=== PATIENT | male | born 1935 | race Caucasian/White ===

== ENCOUNTER 2024-01-29 13:42 | Inpatient (IN) | payer OTHER, SELFPAY ==
[2024-01-29] VITALS (40 sets, daily range): BP systolic 108–169; BP diastolic 53–90; PULSE 38–71; RESP 13–25; TEMP 36.2–36.4; O2SAT 90–97
--- NOTE | 2024-01-29 13:43 | XRR_ITS ---
PROCEDURE INFORMATION: Exam: XR Chest Exam date and time: 01/29/2024 2:16 PM Age: 88 years old Clinical indication: Shortness of breath; Prior surgery; Surgery date: 6+ months; Surgery type: Stents; Additional info: Cp TECHNIQUE: Imaging protocol: Radiologic exam of the chest. Views: 1 view. COMPARISON: No relevant prior studies available. FINDINGS: Lungs: Primarily right-sided pulmonary vascular congestion. No focal consolidation. Pleural spaces: No pleural effusion. No pneumothorax. Heart/Mediastinum: Cardiomegaly. Bones/joints: No acute findings. XR/XR chest 1V portable [id number] IMPRESSION: Cardiomegaly and mild pulmonary vascular congestion. No focal lung consolidation.
--- NOTE | 2024-01-29 13:43 | ECG_ITS ---
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 Measurements Intervals [place] Rate: 44 P: 48 [place]: 251 QRS: 20 QRSD: 108 T: 121 QT: 508 QTc: 439 Interpretive Statements SINUS BRADYCARDIA WITH FIRST DEGREE AV BLOCK POSSIBLE ANTERIOR MYOCARDIAL INFARCTION , OF INDETERMINATE AGE [30 ms Q WAVE IN V3/V4, OR R < 0.2 mV IN V4] POSSIBLE INFERIOR MYOCARDIAL INFARCTION , PROBABLY OLD [30 ms Q WAVE IN II/aVF] MODERATE T-WAVE ABNORMALITY, CONSIDER LATERAL ISCHEMIA [-0.1+ mV T-WAVE IN I/aVL/V5/V6] No previous ECG available for comparison Electronically Signed On 01-29-2024 18:55:02 CDT by Alex Herrera M.D. [email or web address] adult care [email or web address] [email or web address].K[employer]za/store/[id number]
--- NOTE | 2024-01-29 13:50 | ED_ITS ---
HPI - SOB/Dyspnea 2 General: Chief Complaint: Chest Pain Stated Complaint: left side chest pain Time Seen by Provider: 01/29/24 13:43 Source: patient and EMS Mode of arrival: EMS Limitations: no limitations History of Present Illness: HPI Narrative: 88-year-old male states that he has been having some shortness of breath and cough for the last 2 weeks. Patient states that he had had a heart attack last week and received stents he denies any chest pain at this time he denies any fever he has had the cough and dyspnea his pulse ox here is 96% on room air. Associated symptoms: Deny abdominal pain, chest pain, fever(s), nausea or vomiting Review of Systems 2 Const: Denies: fever(s), chills, body aches or change in appetite ENMT: Denies: throat pain or dental pain Card: Denies: chest pain Resp: Reports: dyspnea and non-productive cough GI: Denies: abdominal pain, nausea, vomiting or diarrhea Musc: Denies: neck pain or back pain Skin/Breast: Denies: rash Neuro: Denies: headache(s) Physical Exam 2 Const: COMMON NORMALS: patient oriented x3 HENMT: COMMON NORMALS: normocephalic and atraumatic HEAD & SCALP: n ormocephalic and atraumatic Eye: COMMON NORMALS: Equal, round and reactive pupils present and EOMs intact bilaterally PUPIL: Yes Equal, round and reactive pupils present Neck/C-Spine: COMMON NORMALS: full ROM and supple Chest: COMMONS NORMALS: normal inspection of the chest Resp: COMMON NORMALS: No retractions OTHER: rales rlll Cardio: COMMON NORMALS: regular rhythm and No murmurs present (Cardio) R ATE: bradycardic RHYTHM: regular rhythm GI: COMMON NORMALS: Normal to inspection, nondistended, normoactive bowel sounds present, Soft to palpation, non-tender and no masses PALPATION: Yes Soft to palpation Extremity: COMMON NORMALS: normal to inspection and full ROM Neuro: COMMON NORMALS: patient oriented x3, moves all extremities and no focal motor deficits Psych: COMMON NORMALS: mental status grossly normal, Normal thought process present and cooperative THOUGHT PROCESS: Normal thought process present Skin: COMMON NORMALS: no rashes or lesions noted and no wounds GENERAL SKIN EXAM: no rashes or lesions noted Course 2 Vital Signs: Vital signs: Vital Signs Temperature 97.5 F L 03/18/24 13:48 Pulse Rate 45 L 01/29/24 13:48 Respiratory Rate 18 01/29/24 13:48 Blood Pressure 158/89 01/29/24 13:48 Pulse Oximetry 95 01/29/24 13:48 Oxygen Delivery Me thod Room Air 01/29/24 13:48 MDM - SOB/Dyspnea Medical Decision Making Patient presents here with shortness of breath likely from CHF x-ray does show some pulmonary edema and his BNP is quite elevated. He had no chest pain EKG shows no ST elevation he does have an elevated troponin here he did have a recent cath with stent placement I did speak to the container finishing inspector Dr. Block who is consulted will trend troponins I spoke to hospitalist and will admit to cardiac stepdown Medical Records I reviewed the patient's medical records. Lab Data I reviewed the patient's lab results. 01/29/24 14:06 01/29/24 14:06 Labs/Radiology: Radiology Impressions Chest X-Ray 01/29/24 13:43 IMPRESSION: Cardiomegaly and mild pulmonary vascular congestion. No focal lung consolidation. Laboratory Results WBC 12.42 10^3/uL (3.29-11.43) H 01/29/24 14:06 RBC 3.41 10^6/uL (3.85-5.65) L 01/29/24 14:06 Hgb 11.50 g/dL (11.27-16.99) 01/29/24 14:06 Hct 36.2 % (37-53) L 01/29/24 14:06 MCV 106.2 fl (82-101) H 01/29/24 14:06 MCH 33.7 pg (27-33) H 01/29/24 14:06 MCHC 31.8 g/dL (30-55) 01/29/24 14:06 RDW 14.5 % (12.1-15.1) 01/29/24 14:06 Plt Count 378 10^3/cmm (157-399) 01/29/24 14:06 MPV 11.8 fL (7.4-10.4) H 01/29/24 14:06 Neut % (Auto) 82.1 % 01/29/24 14:06 Lymph % (Auto) 7.8 % 01/29/24 14:06 [place] % (Auto) 8.0 % 01/29/24 14:06 Eos % (Auto) 1.0 % 01/29/24 14:06 Baso % (Auto) 0.5 % 01/29/24 14:06 Neut # (Auto) 10.21 10^3/uL (1.8-7.7) H 01/29/24 14:06 Lymph # (Auto) 1.0 10^3/uL (0.8-4.8) 01/29/24 14:06 [place] # (Auto) 1.0 10^3/uL (0.2-0.9) H 01/29/24 14:06 Eos # (Auto) 0.1 10^3/uL (0.0-0.8) 01/29/24 14:06 Baso # (Auto) 0.1 10^3/uL (0.0-0.1) 01/29/24 14:06 Nucleated RBC % (auto) 0 % 01/29/24 14:06 Nucleated RBCs # 0.0 /100WBC 01/29/24 14:06 PT 15.20 SECONDS (12.1-14.9) H 01/29/24 14:06 INR 1.16 (0.8-1.2) 01/29/24 14:06 Sodium 137 mmol/L (136-145) 01/29/24 14:06 Potassium 4.4 mmol/L (3.5-5.1) 01/29/24 14:06 Chloride 104 mmol/L (98-107) 01/29/24 14:06 Carbon Dioxide 20 mmol/L (22-29) L 01/29/24 14:06 Anion Gap 17.4 (5-19) 01/29/24 14:06 BUN 63 mg/dL (8-23) H 01/29/24 14:06 Creatinine 2.8 mg/dL (0.7-1.2) H 01/29/24 14:06 GFR Calculation Not Reportable 01/29/24 14:06 Glucose 94 mg/dL (65-115) 01/29/24 14:06 Calculated Osmolality 302 mOsm/kg (285-295) H 01/29/24 14:06 Calcium 9.2 mg/dL (8.5-10.5) 01/29/24 14:06 Total Bilirubin 0.3 mg/dL (0.15-1.2) 01/29/24 14:06 AST 23 U/L (0-40) 01/29/24 14:06 ALT 27 U/L (0-41) 01/29/24 14:06 Alkaline Phosphatase 81 U/L (40-130) 01/29/24 14:06 Troponin T Baseline 453 ng/L (0-15) H* 01/29/24 14:06 NT-Pro-B Natriuret Pep 48324 pg/mL (0-450) H 01/29/24 14:06 Total Protein 6.4 g/dL (6.6-8.7) L 01/29/24 14:06 Albumin 3.9 g/dL (3.5-5.2) 01/29/24 14:06 Globulin 2.5 g/dL (1.3-4.6) 01/29/24 14:06 Lipase 59 U/L (13-60) 01/29/24 14:06 All radiology interpretation(s) finalized by discharge EKG Data EKG 1: I personally reviewed and interpreted this EKG as follows: EKG Interpretation Date: 01/29/24 EKG interpretation time: 13:46 Interpretation: sinus baylee hr [address] elevation qrs 108 qtc 461 Discharge Plan Discharge Patient Disposition: Admitted As Inpatient Clinical Impression: CHF (congestive heart failure) Condition: Stable Prescriptions: No Action Aspir-81 81 mg Tablet,Delayed Release (Dr/Ec) 81 mg PO DAILY amiodarone 200 mg Tablet 200 mg PO BID metoprolol succinate 200 mg Tablet Extended Release 24 Hr 200 mg PO DAILY hydralazine 25 mg Tablet 25 mg PO TID Plavix 75 mg Tablet 75 mg PO DAILY isosorbide dinitrate 20 mg Tablet 20 mg PO TID Rx Instructions: allow nitrate-free interval of 12-14 hrs per 24-hr period (RX NO PICKED UP OF 01/29/24) Crestor 10 mg Tablet 10 mg PO DAILY Eliquis 2.5 mg Tablet 2.5 mg PO BID Rx Instructions: (RX NOT PICKED UP OF 01/29/24) Coding Level of Care Code ED [place] Guide for Nathaniel Juárez
[2024-01-29 14:28] LABS: Basophils # 0.1 10^3/uL (0.0-0.1); Basophils % 0.5 %; Eosinophils # 0.1 10^3/uL (0.0-0.8); Hematocrit 36.2 % (37-53); Lymphocytes % 7.8 %; Mean Corpuscular HGB Conc 31.8 g/dL (30-55); Mean Corpuscular Hemoglobin 33.7 pg (27-33); Mean Corpuscular Volume 106.2 fl (82-101); Mean Platelet Volume 11.8 fL (7.4-10.4); Neutrophils # 10.21 10^3/uL (1.8-7.7); Neutrophils % 82.1 %; Nucleated Red Blood Cells % 0 %; Platelet Count 378 10^3/cmm (157-399); Red Blood Count 3.41 10^6/uL (3.85-5.65); Red Cell Distribution Width 14.5 % (12.1-15.1); White Blood Count 12.42 10^3/uL (3.29-11.43)
--- NOTE | 2024-01-29 14:38 | PC.PHAR ---
Addendum entered by Kylee Benoit 01/29/24 15:49: [facility] MED L[facility] THAT [facility] HAS ALFUZOSIN 10MG ONE TAB QPM-FINASTERIDE 5MG ONE TAB DAILY-AMLODIPINE 10MG ONE TAB PO DAILY-CHLORTHALIDONE 25MG ONE TAB DAILY-CLONIDINE 0.2MG ONE TAB PO DAILY-LEVOTHYROXINE 25MCG ONE TAB PO QAM-KCL 20MEQ TAKE ONE-HALF TAB 10MEQ PO DAILY-LOSARTAN 100MG ONE TAB PO DAILY-ASPIRIN 325MG ONE TAB ONCE A DAY Original Note: PT STATES HIS TAKES CARE OF HIS MEDICATIONS-PT STATES HE WAS ON MEDICATIONS FROM THE [place] BEFORE HE WAS AT THE HOSPITAL [facility] -STATES NOT TAKEN VA MEDS FOR ALMOST 2 WEEKS-PT AND PTS UNSURE OF NAMES OF MEDICATIONS FAXED [place] FOR MED LIST-PTS STATES PT WAS DISCHARGED ON 01/20/24 FROM THE [facility]- STATES FILLED MEDICATIONS FROM DISCHARGE MEDS AT [facility]-CALLED [facility] STATES THE PT DID NOT RADIO/TV TECHNICIAN ISOSORBIDE DINITRATE 20MG TID OR ELIQUIS 2.5MG BID PTS STATES SHE DIDNT RADIO/TV TECHNICIAN ELIQUIS 2.5MG BID BECAUSE IT WAS TOO EXPENSIVE BUT STATES SHE WASNT AWARE OF THE ISOSORBIDE DINITRATE 20MG TID -STATES THE PT IS ONLY TAKING 5 DIFFERENT MEDICATIONS PLUS THE 81MG ASPIRIN SINCE BEING DISCHARGED FROM [facility]-STILL WAITING FOR VA LIST
[2024-01-29 14:48] LABS: INR 1.16 (0.8-1.2)
[2024-01-29 14:53] LABS: Troponin(5th) Baseline 453 ng/L (0-15)
[2024-01-29 14:59] LABS: Alanine Aminotransferase 27 U/L (0-41); Albumin Level 3.9 g/dL (3.5-5.2); Alkaline Phosphatase 81 U/L (40-130); Anion Gap 17.4 (5-19); Aspartate Amino Transferase 23 U/L (0-40); Blood Urea Nitrogen 63 mg/dL (8-23); Calcium 9.2 mg/dL (8.5-10.5); Carbon Dioxide 20 mmol/L (22-29); Chloride 104 mmol/L (98-107); Globulin 2.5 g/dL (1.3-4.6); Glucose 94 mg/dL (65-115); Lipase 59 U/L (13-60); NT Pro B Type Natriuretic Pept 33591 pg/mL (0-450); Osmolality Calculated 302 mOsm/kg (285-295); Potassium 4.4 mmol/L (3.5-5.1); Sodium 137 mmol/L (136-145); Total Bilirubin 0.3 mg/dL (0.15-1.2); Total Protein 6.4 g/dL (6.6-8.7)
[2024-01-29] MEDS: FUROsemide 10 mg/mL SDV 10mL 60 MG IVP (15:16)
[2024-01-29] MEDS: aspirin 81 mg Chew Tablet 324 MG PO (15:16)
--- NOTE | 2024-01-29 15:43 | ECG_ITS ---
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 Measurements Intervals [place] Rate: 39 P: 20 [place]: 238 QRS: 13 QRSD: 104 T: 111 QT: 527 QTc: 427 Interpretive Statements SINUS BRADYCARDIA WITH FIRST DEGREE AV BLOCK ANTEROSEPTAL MYOCARDIAL INFARCTION , PROBABLY RECENT [40+ ms Q WAVE IN V1-V4] ACUTE SD Compared to ECG 01/29/2024 13:46:33 T-wave abnormality no longer present Possible ischemia no longer present Myocardial infarct finding still present Electronically Signed On 01-29-2024 18:58:29 CDT by Alex Herrera M.D. [email or web address]/[id number]
--- NOTE | 2024-01-29 15:45 | CTR_ITS ---
PROCEDURE INFORMATION: Exam: CT Chest Without Contrast; Diagnostic Exam date and time: 01/29/2024 4:31 PM Age: 88 years old Clinical indication: Shortness of breath; Additional info: Ahrotness of breath chf vs pna TECHNIQUE: Imaging protocol: Diagnostic computed tomography of the chest without contrast. Radiation optimization: All CT scans at this facility use at least one of these dose optimization techniques: automated exposure control; mA and/or kV adjustment per patient size (includes targeted exams where dose is matched to clinical indication); or iterative reconstruction. COMPARISON: CR XR chest 1V portable [id number] 01/29/2024 2:16 PM RADIATION DOSE METRICS: Total DLP (mGy-cm): 495.12 FINDINGS: Lungs: Primarily right-sided multifocal patchy airspace opacities. Pleural spaces: Small dvzkg-sowzycv-hldv-left pleural effusions. Heart: Extensive coronary calcifications. No pericardial effusion. Lymph nodes: Reactive appearing mediastinal/hilar lymph nodes. Vasculature: No aortic aneurysm. Bones/joints: No acute findings Soft tissues: Cholelithiasis. 3.5 cm pancreatic head cystic lesion. Tiny hepatic cyst or hemangioma. CT/CT chest wo con [id number] IMPRESSION: Primarily right-sided patchy airspace opacities likely infectious/inflammatory. Small bilateral pleural effusions. 3.5 cm pancreatic head cystic lesion. Nonemergent pancreatic MRI recommended for further characterization. Cholelithiasis.
--- NOTE | 2024-01-29 15:45 | USCV_ITS ---
Aneesh Raman Age: 88 Gender: M : 1935 Exam Date: 01/29/2024 23:15 Ordering Phys: Antione Aguila MD Technologist: ALFRED [place] [facility]ication: NSTEMI sob cough x 2 weeks. MA last week s/p stents. BP: 141 / 79 HR: 39 Rhythm: Sinus bradycardia Technical Quality: Adequate MEASUREMENTS (Male / Female) Normal Values 2D ECHO LV Diastolic Diameter PLAX 4.1 cm 4.2 - 5.9 / 3.9 - 5.3 cm IVS Diastolic Thickness 2.1 cm 0.6 - 1.0 / 0.6 - 0.9 cm IVS Systolic Thickness 2.2 cm LVPW Diastolic Thickness 1.5 cm 0.6 - 1.0 / 0.6 - 0.9 cm LVPW Systolic Thickness 2.5 cm LVOT Diameter 2.1 cm LV Ejection Fraction 2D Teich 59.0 % LV Ejection Fraction MOD 2C 23.7 % LV Ejection Fraction 2C AL 24.8 % LA Diameter 4.6 cm Aorta at Sinotubular Diameter 3.5 cm IVC Diameter 2.0 cm DOPPLER AV Peak Velocity 145.0 cm/s LVOT Peak Velocity 76.0 cm/s AV Area Cont Eq vti 1.9 cm squared AV Area Cont Eq pk 1.8 cm squared MV Peak Velocity 101.0 cm/s MV Area PHT 2.9 cm squared Mitral E to A Ratio 3.4 TV Peak Velocity 320.3 cm/s TR Peak Velocity 332.0 cm/s TR Peak Gradient 44.1 mmHg TV Peak E Velocity 38.0 cm/s Right Atrial Pressure 10.0 mmHg Pulmonary Artery Systolic Pressu 54.1 mmHg PV Peak Velocity 80.0 cm/s FINDINGS Left Ventricle Left ventricle is normal in size. LV Systolic function is severely reduced with EF of 25-30%. Severe hypokinesis of anterior and anteroseptal ojhn. Right Ventricle Normal in size and function Right Atrium Normal in size Left Atrium Normal in size Mitral Valve Mild to moderate mitral annular calcification. Trace mitral regurgitation. Aortic Valve Aortic valve is thickened. Mild aortic regurgitation. No significant stenosis. Tricuspid Valve Moderate tricuspid regurgitation. RVSP is 50-55mmHg. This is consistent with moderate pulmonary hypertension. 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 Above-mentioned regional wall motion abnormalities are seen. Trace mitral regurgitation Mild aortic regurgitation Moderate tricuspid regurgitation. 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 No comparison studies are available Vic Villa MD (Electronically Signed) Final Date: 30 January 2024 12:28 S
--- NOTE | 2024-01-29 15:46 | P.HP_ITS ---
Providers/Chief Complaint 2 Chief Complaint: left side chest pain History of Present Illness Aneesh Raman is a 88 year old male with a past medical history of CAD recently had a stent placed in [facility] about a week ago, history of atrial fibrillation on Eliquis, hypertension hyperlipidemia who presents to [facility] due to increased shortness of breath, fatigue, malaise. Currently patient is normotensive, telemetry shows sinus bradycardia heart rates in the 40s, he is alert awake, following all commands, currently on 2 L, does not use oxygen at home. Patient tells me that he was admitted at [facility] for roughly a week he does not know why it was for so long, but that he had 1 stent placed in his heart, denies any infections during that hospitalization no history of heart failure or history of kidney failure at that position, still waiting on records. He eventually got discharged home he lives with his , he tells me that recently has been more short of breath with exertion, feeling tired and fatigued, feeling lightheaded, does report anterior chest discomfort nonradiating, not associate with shortness of breath, denies any fevers, no chills, does have a cough, denies smoking no history of lung disease he has never been told that he has heart failure he tells me, but he does tell me that when he was at [facility] they told him that his pump was not working well, denies lower extremity edema, denies any falls. In the emergency room patient was given 60 mg IV push Lasix 324 mg of aspirin. First troponin is 453, EKG had no acute ST-T wave changes, BNP over 30,000, chest x- ray showing pulm vascular congestion. Dr. Anderson from the emergency room has informed me that he has spoken to Dr. Villa, will consult Review of Systems 2 Const: Reports: fatigue and malaise; Denies: fever(s) Eyes: Denies: change in vision Card: Reports: chest pain, lightheadedness and dyspnea on exertion; Denies: palpitations Resp: Reports: dyspnea and non-productive cough GI: Denies: abdominal pain : Denies: flank pain Musc: Denies: neck pain or back pain Skin/Breast: Denies: rash Neuro: Reports: weakness in extremities and dizziness; Denies: headache(s), numbness in extremities, vertigo or Slurred speech present Endo: Denies: polyuria Medications/Allergies Home Medications Medication Instructions Recorded Confirmed Last Taken Type amiodarone 200 mg tablet 200 mg PO BID 01/29/24 01/29/24 Unknown History apixaban 2.5 mg tablet (Eliquis) 2.5 mg PO BID 01/29/24 01/29/24 Unknown History aspirin 81 mg tablet,delayed 81 mg PO DAILY 01/29/24 01/29/24 Unknown History release clopidogrel 75 mg tablet (Plavix) 75 mg PO DAILY 01/29/24 01/29/24 Unknown History hydralazine 25 mg tablet 25 mg PO TID 01/29/24 01/29/24 Unknown History isosorbide dinitrate 20 mg tablet 20 mg PO TID 01/29/24 01/29/24 Unknown History metoprolol succinate 200 mg 200 mg PO DAILY 01/29/24 01/29/24 Unknown History tablet,extended release 24 hr rosuvastatin 10 mg tablet (Crestor) 10 mg PO DAILY 01/29/24 01/29/24 Unknown History Allergies Allergy/AdvReac Type Severity Reaction Status Date / Time No Known Allergies Allergy Verified 01/29/24 13:49 PFSH Acute 2 PFSH: Medical History (Updated 01/29/24 @ 15:53 by Antione Aguila MD) History of hypertension History of hyperlipidemia History of CAD (coronary artery disease) Surgical History (Updated 01/29/24 @ 15:50 by Antione Aguila MD) History of heart artery stent Family History (Updated 01/29/24 @ 15:50 by Antione Aguila MD) Mother CAD (coronary artery disease) Father Perforated appendicitis Social History (Updated 01/29/24 @ 15:51 by Antione Aguila MD) Smoking and tobacco/nicotine status: never used tobacco/nicotine Alcohol intake: never Substance/Drug Use: never Vitals/I&O/Wt Last Vital Signs Temp 97.5 F L 01/29/24 13:48 Pulse 45 L 01/29/24 13:48 Resp 18 01/29/24 13:48 BP 158/89 01/29/24 13:48 Pulse Ox 95 01/29/24 13:48 O2 Del Method Room Air 01/29/24 13:48 Weight last 48 hrs Weight 88.451 kg Physical Exam 2 Const: COMMON NORMALS: no acute distress and patient oriented x3 HENMT: COMMON NORMALS: normocephalic HEAD & SCALP: normocephalic Eye: COMMON NORMALS: Equal, round and reactive pupils present and EOMs intact bilaterally Neck/C-Spine: COMMON NORMALS: no JVD Lymph: LYMPHATIC: no lymphadenopathy noted Resp: COMMON NORMALS: normal respiratory effort, No retractions, No use of accessory muscles and clear to auscultation bilaterally AUSCULTATION: c rackles and wheezes Cardio: COMMON NORMALS: no JVD, regular rate, regular rhythm, S1 normal heart sound present and S2 normal heart sound present RATE: regular rate RHYTHM: regular rhythm HEART SOUNDS: S1 normal heart sound present and S2 normal heart sound present GI: COMMON NORMALS: Normal to inspection, nondistended, normoactive bowel sounds present, Soft to palpation and non-tender PALPATION: Yes Soft to palpation Extremity: COMMON NORMALS: no calf tenderness and no pedal edema Neuro: COMMON NORMALS: patient oriented x3, CN's II-XII intact bilaterally and moves all extremities Psych: COMMON NORMALS: mental status grossly normal Data 01/29/24 14:06 01/29/24 14:06 A&P Assessment and plan (1) NSTEMI (non-ST elevated myocardial infarction): (2) Systolic CHF, acute: (3) Leukocytosis: (4) Acute kidney injury: (5) Bradycardia: Plan Acute systolic CHF exacerbation -BNP over 30,000, chest x-ray showing pulmonary vascular congestion Plan -Place Larson catheter -Has received 60 mg IV Lasix in the ER -Monitor urine output monitor creatinine -Start Lasix 40 mg IV twice daily NSTEMI -With recent history of CAD -Will await records -Currently chest pain-free Plan -Serial EKGs, serial troponins, telemetry monitoring -Heparin drip -Aspirin, statin, Plavix -Cardiology consulted Acute kidney injury -Baseline creatinine unknown -Will await labs from [facility] -Monitor urine output, monitor creatinine Leukocytosis -Complains of productive cough, complains of recent UTI -Etiology unclear -Recently hospitalized at [facility] -UA pending -Chest x-ray is difficult to see the left lung base, -Will order CRP, Pro-Gerald, CT chest Bradycardia -Possibly polypharmacy, from amiodarone, metoprolol, will hold both Full code Heparin for DVT prophylaxis Attestations 2 Medical Necessity Statement*: Patient requires hospitalization, inpatient, greater than 2 midnights for acute systolic CHF, NSTEMI, bradycardia, leukocytosis, DRAKE Diagnoses NSTEMI (non-ST elevated myocardial infarction) I21.4 Systolic CHF, acute I50.21 Leukocytosis D72.829 Acute kidney injury N17.9 Bradycardia R00.1
--- NOTE | 2024-01-29 15:56 | P.CONIM_ITS ---
Providers/Reason For Consult 2 Consulting Physician/Specialty*: Vic Villa MD/ Cardiology Reason for Consult*: NSTEMI Requesting Physician: Dr Anderson Attending Physician: Dr Aguila History of Present Illness History of Present Illness Aneesh Raman is a 88 year old male with past medical history of atrial fibrillation on Eliquis, recent CA 1 to 2 weeks back when he was seen at [facility] and underwent PCI of LAD, was also found to have congestive heart failure at that time. He was sent from PCP office secondary to complaints of shortness of breath and EKG changes. On review of EKG, no ST elevation CA noted however he does have ST-T wave changes in anterior and anterolateral leads likely evolving from old CA. He is significantly bradycardic with heart rates aroung 40bpm. His initial troponin is 453 with a downtrend afterwards. BNP is over 30,000. Creatinine is elevated as well. He denies chest pain. Review of Systems 2 Const: Denies: fever(s), chills, body aches or change in appetite ENMT: Denies: throat pain or dental pain Card: Denies: chest pain Resp: Reports: dyspnea and non-productive cough GI: Denies: abdominal pain, nausea, vomiting or diarrhea Musc: Denies: neck pain or back pain Skin/Breast: Denies: rash Neuro: Denies: headache(s) Medications/Allergies Home Medications Medication Instructions Recorded Confirmed Last Taken Type amiodarone 200 mg tablet 200 mg PO BID 01/29/24 01/29/24 Unknown History apixaban 2.5 mg tablet (Eliquis) 2.5 mg PO BID 01/29/24 01/29/24 Unknown History aspirin 81 mg tablet,delayed 81 mg PO DAILY 01/29/24 01/29/24 Unknown History release clopidogrel 75 mg tablet (Plavix) 75 mg PO DAILY 01/29/24 01/29/24 Unknown History hydralazine 25 mg tablet 25 mg PO TID 01/29/24 01/29/24 Unknown History isosorbide dinitrate 20 mg tablet 20 mg PO TID 01/29/24 01/29/24 Unknown History metoprolol succinate 200 mg 200 mg PO DAILY 01/29/24 01/29/24 Unknown History tablet,extended release 24 hr rosuvastatin 10 mg tablet (Crestor) 10 mg PO DAILY 01/29/24 01/29/24 Unknown History Allergies Allergy/AdvReac Type Severity Reaction Status Date / Time No Known Allergies Allergy Verified 01/29/24 13:49 PFSH Acute 2 PFSH: Medical History History of hypertension History of hyperlipidemia History of CAD (coronary artery disease) Surgical History History of heart artery stent Family History Mother CAD (coronary artery disease) Father Perforated appendicitis Social History Smoking and tobacco/nicotine status: never used tobacco/nicotine Alcohol intake: never Substance/Drug Use: never Vitals/I&O/Wt Last Vital Signs Temp 97.5 F L 01/29/24 13:48 Pulse 45 L 01/29/24 13:48 Resp 18 01/29/24 13:48 BP 158/89 01/29/24 13:48 Pulse Ox 95 01/29/24 13:48 O2 Del Method Room Air 01/29/24 13:48 Weight last 48 hrs Weight 195 lb Physical Exam 2 Narrative: GENERAL: Patient is alert, awake and oriented x3. [] NECK: No jugular vein distension. [] HEENT: No cyanosis. No icterus. No pallor. [] HEART: Regular S1 and S2. No murmur, rub or gallop. [] LUNGS: Mild crakcles bilaterally CENTRAL NERVOUS SYSTEM: Grossly nonfocal. [] EXTREMITIES: Lower extremities with 1+ edema bilaterally. Data 01/30/24 05:21 01/30/24 05:21 A&P Assessment and plan (1) NSTEMI (non-ST elevated myocardial infarction): (2) CHF (congestive heart failure): (3) Systolic CHF, acute: (4) Bradycardia: (5) Acute kidney injury: Plan Patient had recent LAD PCI in setting of acute CA. Was also found to have congestive heart failure at outside hospital. He is presenting with shortness of breath. Presentation is now consistent with CHF exacerbation. Troponins are trending down. Likely trending down from recent CA. Patient is chest pain- free. Continue monitoring. Administered Lasix cautiously. He has DRAKE. Will monitor renal function and I&O's. Continue aspirin and Plavix. He is significantly bradycardic. Will hold off on metoprolol and may restart at a lower dose later. Monitor blood pressure. Will obtain records from outside hospital where he had presented with recent CA and LAD PCI. Thank you for involving us with care of this patient. We will continue to follow. Please call with questions Consult Attestations 2 Medical Necessity Statement: Care expected to cross 2 midnights. Coding Level of Care Code Acute Code for [facility] Diagnoses NSTEMI (non-ST elevated myocardial infarction) I21.4 CHF (congestive heart failure) I50.9 Systolic CHF, acute I50.21 Bradycardia R00.1 Acute kidney injury N17.9
[2024-01-29 16:48] LABS: Troponin 5 2HR Delta -46.4 ABS# (0-10)
[2024-01-29 16:51] LABS: Troponin 5 2HR 406.6 ng/L (0-15)
[2024-01-29 17:17] LABS: C Reactive Protein 33.6 mg/L (0.0-4.9)
--- NOTE | 2024-01-29 17:24 | PC.NURSE ---
Patient's heart rate is staying steady at 38 or 39 but his blood pressure is 140's/80's and holding steady. I called Dr. Aguila to let him know about the patient's heart rate and he stated that as long as his blood pressure is holding steady he is fine with that heart rate.
[2024-01-29 18:30] LABS: Chol HDL Ratio 2.65 mg/dL (1.0-5.00); Cholesterol 114 mg/dL (0-200); HDL Cholesterol 43 mg/dL (60-100); LDL Cholesterol Calculated 52 mg/dL (50-129); LDL HDL Ratio 1.21 RATIO (0.00-3.22); Thyroid Stimulating Hormone 8.52 uIU/mL (0.27-4.20); Triglycerides 96 mg/dL (0-150)
[2024-01-29 18:32] LABS: Add Urine Culture? No; Add Urine Microscopic? YES; Amorphous Sediment Urine TRACE /hpf; Bilirubin Urine Neg (Negative); Blood Urine Neg (Negative); Glucose Urine UA Norm (Normal); Ketones Urine Negative (Negative); Leukocyte Esterase Urine Negative (Negative); Nitrate Urine Negative (Negative); Protein Urine Trace (Negative); Specific Gravity, Urine 1.015 (1.005-1.030); Urine Appearance Clear (CLEAR); Urine Color Yellow (Yellow); Urobilinogen Urine Neg (Negative); pH Urine 5 (5-7)
[2024-01-29] MEDS: pantoprazole 40 mg SDV IVP (19:12)
[2024-01-29] MEDS: cefTRIAXone 1,000 MG in sodium chloride 0.9% (plus) 50 ML 100 MG IV (19:13)
[2024-01-29] MEDS: azithromycin 500 MG in sodium chloride 0.9% 250 ML 250 MG IV (19:14)
--- NOTE | 2024-01-29 19:43 | ECG_ITS ---
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 Measurements Intervals [place] Rate: 39 P: 16 [place]: 242 QRS: -6 QRSD: 106 T: 194 QT: 635 QTc: 515 Interpretive Statements SINUS BRADYCARDIA WITH FIRST DEGREE AV BLOCK INFERIOR MYOCARDIAL INFARCTION , OF INDETERMINATE AGE [40+ ms Q WAVE AND/OR ST/T ABNORMALITY IN II/aVF] ANTEROSEPTAL MYOCARDIAL INFARCTION , AGE INDETERMINATE Compared to ECG 01/29/2024 16:21:47 Prolonged QT interval now present Myocardial infarct finding still present Electronically Signed On 01-30-2024 21:43:55 CDT by Vic Villa M.D. [id number]
[2024-01-29 19:59] LABS: Adenovirus Not Detected (NOT DETECT); Chlamydia Pneumoniae Not Detected (NOT DETECT); Coronavirus 229E,HKU1,NL63,OC4 Not Detected (NOT DETECT); Human Metapneumovirus Not Detected (NOT DETECT); Human Rhinovirus/Enterovirus Not Detected (NOT DETECT); Influenza A Not Detected (NOT DETECT); Influenza A H1 Not Detected (NOT DETECT); Influenza A H1-2009 Not Detected (NOT DETECT); Influenza A H3 Not Detected (NOT DETECT); Influenza B Not Detected (NOT DETECT); Mycoplasma Pneumoniae Not Detected (NOT DETECT); Parainfluenza Virus Type 1 Not Detected (NOT DETECT); Parainfluenza Virus Type 2 Not Detected (NOT DETECT); Parainfluenza Virus Type 3 Not Detected (NOT DETECT); Parainfluenza Virus Type 4 Not Detected (NOT DETECT); Respiratory Syncytial Virus A Not Detected (NOT DETECT); Respiratory Syncytial Virus B Not Detected (NOT DETECT); SARS-COV-2 Not Detected (NOT DETECT)
[2024-01-29 20:33] LABS: Troponin 5 6HR Delta -60.3 ng/L (0-12)
[2024-01-29 20:34] LABS: Troponin 5 6HR 392.7 ng/L (0-15)
[2024-01-29 21:11] LABS: Estmated Average Glucose 111; Hemoglobin A1C 5.5 % (4.0-6.0)
[2024-01-29] MEDS: heparin drip 25,000 UNIT/500 ML PREMIX 25 UNIT IV (21:52)
[2024-01-29] MEDS: FUROsemide 10 mg/mL SDV 4mL 40 MG IVP (21:56)
[2024-01-29] MEDS: hyDRALAzine 25 mg Tablet PO (21:56)
[2024-01-29] MEDS: isosorbide dinitrate 20 mg Tablet PO (21:59)
[2024-01-30] VITALS (94 sets, daily range): BP systolic 96–162; BP diastolic 49–97; PULSE 0–69; RESP 10–29; TEMP 36.4–36.6; O2SAT 87–98
[2024-01-30] MEDS: DOPamine drip 400 MG/250 ML PREMIX 16.3099999999999987 MG IV (01:18)
--- NOTE | 2024-01-30 01:30 | ECG_ITS ---
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 Measurements Intervals [place] Rate: 43 P: 45 [place]: 182 QRS: 7 QRSD: 102 T: 91 QT: 488 QTc: 414 Interpretive Statements SINUS BRADYCARDIA POSSIBLE INFERIOR MYOCARDIAL INFARCTION , OF INDETERMINATE AGE [30 ms Q WAVE IN II/aVF] MODERATE T-WAVE ABNORMALITY, CONSIDER ANTERIOR ISCHEMIA [-0.1+ mV T-WAVE IN V3/V4] Compared to ECG 01/30/2024 00:10:02 T-wave abnormality now present Possible ischemia now present First degree AV block no longer present Prolonged QT interval no longer present Myocardial infarct finding still present Electronically Signed On 01-30-2024 21:35:40 CDT by Vic Villa M.D. [id number] f
--- NOTE | 2024-01-30 01:37 | PC.NURSE ---
Patient had extended pause in heart rate, entered room, color dusky, respirations irregular and labored. Heart rate returned to 30's with tactile stimulation and patient was then responsive, answering questions as per his normal status, denied any chest pain or discomfort, stated my pecker hurts . Contacted physician, new order received for set dose of Dopamine. Medication started at set rate and heart rate currently in 50's.
[2024-01-30 05:46] LABS: Basophils # 0.1 10^3/uL (0.0-0.1); Basophils % 0.5 %; Eosinophils # 0.1 10^3/uL (0.0-0.8); Eosinophils % 0.9 %; Hematocrit 35.6 % (37-53); Lymphocytes % 6.6 %; Mean Corpuscular HGB Conc 32.6 g/dL (30-55); Mean Corpuscular Hemoglobin 33.2 pg (27-33); Mean Platelet Volume 11.9 fL (7.4-10.4); Monocytes # 1.2 10^3/uL (0.2-0.9); Monocytes % 7.9 %; Neutrophils # 12.72 10^3/uL (1.8-7.7); Neutrophils % 83.4 %; Nucleated Red Blood Cells % 0 %; Platelet Count 376 10^3/cmm (157-399); Red Blood Count 3.49 10^6/uL (3.85-5.65); Red Cell Distribution Width 14.4 % (12.1-15.1); White Blood Count 15.25 10^3/uL (3.29-11.43)
[2024-01-30 06:07] LABS: Partial Thromboplastin Time 103.6 SECONDS (23.9-36.7)
[2024-01-30 06:23] LABS: NT Pro B Type Natriuretic Pept 25831 pg/mL (0-450)
[2024-01-30 06:31] LABS: Alanine Aminotransferase 24 U/L (0-41); Albumin Level 3.6 g/dL (3.5-5.2); Alkaline Phosphatase 77 U/L (40-130); Anion Gap 17.5 (5-19); Aspartate Amino Transferase 18 U/L (0-40); Blood Urea Nitrogen 60 mg/dL (8-23); Calcium 8.8 mg/dL (8.5-10.5); Carbon Dioxide 21 mmol/L (22-29); Chloride 107 mmol/L (98-107); Globulin 3.1 g/dL (1.3-4.6); Glucose 105 mg/dL (65-115); Magnesium 2.6 mg/dL (1.7-2.3); Osmolality Calculated 311 mOsm/kg (285-295); Phosphorus 3.8 mg/dL (2.5-4.5); Potassium 3.5 mmol/L (3.5-5.1); Sodium 142 mmol/L (136-145); Total Bilirubin 0.4 mg/dL (0.15-1.2); Total Protein 6.7 g/dL (6.6-8.7)
[2024-01-30 06:34] LABS: Creatinine Clr Calc Pharmacy 18.8588
--- NOTE | 2024-01-30 07:50 | P.PN_ITS ---
Subjective 2 Subjective: Patient is doing well. No chest pain. Some shortness of breath. Vitals/I&O/Wt Last Vital Signs Temp 97.5 F L 01/30/24 01:35 Pulse 60 01/30/24 06:00 Resp 17 01/30/24 04:30 BP 162/83 01/30/24 04:30 Pulse Ox 95 01/30/24 04:30 O2 Del Method Nasal Cannula 01/30/24 00:17 O2 Flow Rate 1 01/30/24 00:17 01/29/24 01/30/24 01/30/24 22:59 06:59 14:59 Intake Total 509.583 / 509.583 Output Total 850 / 850 Balance -850 / -850 509.583 / -340.417 Weight last 48 hrs Weight 190 lb 14.4 oz Weight 191 lb 12.8 oz Weight 195 lb Physical Exam 2 Narrative: GENERAL: Patient is alert, awake and oriented x3. [] NECK: No jugular vein distension. [] HEENT: No cyanosis. No icterus. No pallor. [] HEART: Regular S1 and S2. No murmur, rub or gallop. [] LUNGS: Diminished air entry bilaterally. CENTRAL NERVOUS SYSTEM: Grossly nonfocal. [] EXTREMITIES: Lower extremities with 1+ edema bilaterally. Urinary Catheter Management: Larson Latex Free: Cath Placed During This Visit: yes Reason for Continuing Indwelling Catheter: Accurate Measurement of Urinary Output in Critically Ill Patients Urinary Catheter Date of Insertion: 01/29/24 Urinary Catheter Time of Insertion: 21:30 Data 01/30/24 05:21 01/30/24 05:21 Micro: Microbiology 01/29/24 17:39 Blood Culture - Preliminary Blood SPECIMEN COLLECTED 01/29/24 17:45 Blood Culture - Preliminary Blood SPECIMEN COLLECTED A&P Assessment and plan (1) NSTEMI (non-ST elevated myocardial infarction): (2) CHF (congestive heart failure): (3) Systolic CHF, acute: (4) Bradycardia: (5) Acute kidney injury: Plan Patient's presentation consistent with CHF exacerbation. He is improving. However patient's family want her to be transferred to the hospital where initial PCI was performed. Medically he is stable and does not need any invasive procedures. Medicine team will initiate transverse process. Thank you for involving us with care of this patient. Please call with questions Attestations 2 Medical Necessity Statement*: Care expected to cross 2 midnights. Coding Level of Care Code Acute Code for [facility] Diagnoses NSTEMI (non-ST elevated myocardial infarction) I21.4 CHF (congestive heart failure) I50.9 Systolic CHF, acute I50.21 Bradycardia R00.1 Acute kidney injury N17.9
[2024-01-30] MEDS: atorvastatin 40 mg Tablet PO (09:05)
[2024-01-30] MEDS: aspirin 81 mg EC Tablet PO (09:05)
[2024-01-30] MEDS: clopidogrel 75 mg Tablet PO (09:05)
[2024-01-30] MEDS: isosorbide dinitrate 20 mg Tablet PO ×2 (09:05→16:17)
[2024-01-30 09:15] LABS: Free T4 Free Thyroxine 1.33 ng/dL (0.82-1.77); T3 Free 1.8 PG/ML (2.0-4.4)
[2024-01-30 12:36] LABS: Partial Thromboplastin Time 108.2 SECONDS (23.9-36.7)
[2024-01-30] MEDS: acetaminophen 325 mg Tablet 650 MG PO (13:07)
[2024-01-30] MEDS: levothyroxine 25 mcg Tablet PO (13:07)
--- NOTE | 2024-01-30 14:26 | P.TS_ITS ---
Transfer Summary Providers Date of Admission: 01/29/24 15:05 Date of Discharge/Transfer: 01/30/24 Attending Provider at Admission: Antione Aguila MD Attending Provider at Transfer: Antione Aguila MD Transfer Plans: Anticipated date of transfer: 01/30/24 . Additional transfer facility information: Aneesh Raman is a 88 year old male with a past medical history of CAD recently had a stent placed in [facility] about a week ago, history of atrial fibrillation on Eliquis, hypertension hyperlipidemia who presents to [facility] due to increased shortness of breath, fatigue, malaise. Currently patient is normotensive, telemetry shows sinus bradycardia heart rates in the 40s, he is alert awake, following all commands, currently on 2 L, does not use oxygen at home. Patient tells me that he was admitted at [facility] for roughly a week he does not know why it was for so long, but that he had 1 stent placed in his heart, denies any infections during that hospitalization no history of heart failure or history of kidney failure at that position, still waiting on records. He eventually got discharged home he lives with his , he tells me that recently has been more short of breath with exertion, feeling tired and fatigued, feeling lightheaded, does report anterior chest discomfort nonradiating, not associate with shortness of breath, denies any fevers, no chills, does have a cough, denies smoking no history of lung disease he has never been told that he has heart failure he tells me, but he does tell me that when he was at [facility] they told him that his pump was not working well, denies lower extremity edema, denies any falls. In the emergency room patient was given 60 mg IV push Lasix 324 mg of aspirin. First troponin is 453, EKG had no acute ST-T wave changes, BNP over 30,000, chest x-r ay showing pulm vascular congestion. Dr. Anderson from the emergency room has informed me that he has spoken to Dr. Villa, will consult Patient was admitted to [facility] -Patient was found to have pneumonia on CT imaging, right-sided patchy opacities, with elevated leukocytosis, started on broad-spectrum antibiotic therapy, remains afebrile overall clinically improving, blood cultures pending, -Patient was admitted to [facility] for acute systolic CHF exacerbation, BNP over 30,000, Larson catheter placed received Lasix in the emergency room, has diuresed about a liter, resting comfortably, Lasix has been held as creatinine is up to 2.9 -For his NSTEMI, 6-hour troponin 392, de lta -60.3, managed on a heparin drip, no chest pain complaints no acute ST-T wave changes on EKG, cardiology was consulted, echocardiogram as below, cardiology recommended medical management. Patient recently had LAD stent placed at [facility] LV Systolic function is severely reduced with EF of 25-30%. Severe hypokinesis of anterior and anteroseptal john. -For patient's sinus bradycardia, likely polypharmacy, amiodarone, metoprolol, patient did require dopamine during the night, currently off dopamine, normotensive, heart rates in the 50s, he is alert oriented x 3, following all commands no lightheadedness, dizziness. Patient likely under the effect of metoprolol, and amiodarone continue to monitor, countinue to hold -atrial Fibrillation not in exacerbation , on heparin drip for anticoagulation -Acute kidney injury, baseline creatinin e 2.5-2.6, As per as per patient's request, patient wanted to be transferred to [facility], as all his physicians are at [facility],spoke to hospitalist, spoke to cardiology, have graciously accepted transfer . Diagnoses at Discharge Discharge Diagnosis (1) NSTEMI (non-ST elevated myocardial infarction): Status: Acute (2) CHF (congestive heart failure): Status: Acute (3) Systolic CHF, acute: Status: Acute (4) Bradycardia: Status: Acute (5) Acute kidney injury: Status: Acute Reason for Visit Reason for Visit left side chest pain Physical Exam Const: COMMON NORMALS: no acute distress and patient oriented x3 Resp: COMMON NORMALS: normal respiratory effort, No retractions, No use of accessory muscles and clear to auscultation bilaterally AUSCULTATION: clear to auscultation bilaterally Cardio: COMMON NORMALS: regular rhythm, S1 normal heart sound present and S2 normal heart sound present RATE: bradycardic RHYTHM: regular rhythm HEART SOUNDS: S1 normal heart sound present and S2 normal heart sound present GI: COMMON NORMALS: Normal to inspection, nondistended, normoactive bowel sounds present and non-tender Extremity: COMMON NORMALS: no pedal edema Neuro: COMMON NORMALS: patient oriented x3 Psych: COMMON NORMALS: mental status grossly normal Urinary Catheter Management: Larson Latex Free: Cath Placed During This Visit: yes Reason for Continuing Indwelling Catheter: Accurate Measurement of Urinary Output in Critically Ill Patients Urinary Catheter Date of Insertion: 01/29/24 Urinary Catheter Time of Insertion: 21:30 TS Data Studies Completed and Pending Pending at discharge Category Date Time Status Blood Culture Stat Lab 01/29/24 17:39 Results Complete Blood Count w/Auto AM LABS Lab 01/31/24 04:00 Ordered Complete Blood Count w/Auto AM LABS Lab 02/01/24 04:00 Ordered Comprehensive Metabolic Panel AM LABS Lab 01/31/24 04:00 Ordered Comprehensive Metabolic Panel AM LABS Lab 02/01/24 04:00 Ordered Magnesium AM LABS Lab 01/31/24 04:00 Ordered Magnesium AM LABS Lab 02/01/24 04:00 Ordered NT Pro B Type Natriuretic Pept AM LABS Lab 01/31/24 04:00 Ordered NT Pro B Type Natriuretic Pept AM LABS Lab 02/01/24 04:00 Ordered Phosphorus AM LABS Lab 01/31/24 04:00 Ordered Phosphorus AM LABS Lab 02/01/24 04:00 Ordered Platelet Count Q2D Lab 01/31/24 04:00 Ordered Platelet Count Q2D Lab 02/02/24 04:00 Ordered Completed Studies During Hospitalization Category Date Time Status CT chest wo con [id number] Stat Cat Scan 01/29/24 15:45 Completed XR chest 1V portable [id number] Stat Exams 01/29/24 13:43 Completed CV. echo complete* [id number] Stat Ultrasound 01/29/24 15:45 Completed Laboratory Last Values WBC 15.25 10^3/uL (3.29-11.43) H 01/30/24 05:21 RBC 3.49 10^6/uL (3.85-5.65) L 01/30/24 05:21 Hgb 11.60 g/dL (11.27-16.99) 01/30/24 05:21 Hct 35.6 % (37-53) L 01/30/24 05:21 MCV 102.0 fl (82-101) H 01/30/24 05:21 MCH 33.2 pg (27-33) H 01/30/24 05:21 MCHC 32.6 g/dL (30-55) 01/30/24 05:21 RDW 14.4 % (12.1-15.1) 01/30/24 05:21 Plt Count 376 10^3/cmm (157-399) 01/30/24 05:21 MPV 11.9 fL (7.4-10.4) H 01/30/24 05:21 Neut % (Auto) 83.4 % 01/30/24 05:21 Lymph % (Auto) 6.6 % 01/30/24 05:21 Aurora % (Auto) 7.9 % 01/30/24 05:21 Eos % (Auto) 0.9 % 01/30/24 05:21 Baso % (Auto) 0.5 % 01/30/24 05:21 Neut # (Auto) 12.72 10^3/uL (1.8-7.7) H 01/30/24 05:21 Lymph # (Auto) 1.0 10^3/uL (0.8-4.8) 01/30/24 05:21 Aurora # (Auto) 1.2 10^3/uL (0.2-0.9) H 01/30/24 05:21 Eos # (Auto) 0.1 10^3/uL (0.0-0.8) 01/30/24 05:21 Baso # (Auto) 0.1 10^3/uL (0.0-0.1) 01/30/24 05:21 Nucleated RBC % (auto) 0 % 01/30/24 05:21 Nucleated RBCs # 0.0 /100WBC 01/30/24 05:21 PT 15.20 SECONDS (12.1-14.9) H 01/29/24 14:06 INR 1.16 (0.8-1.2) 01/29/24 14:06 APTT 108.2 SECONDS (23.9-36.7) H 01/30/24 12:07 Sodium 142 mmol/L (136-145) 01/30/24 05:21 Potassium 3.5 mmol/L (3.5-5.1) 01/30/24 05:21 Chloride 107 mmol/L (98-107) 01/30/24 05:21 Carbon Dioxide 21 mmol/L (22-29) L 01/30/24 05:21 Anion Gap 17.5 (5-19) 01/30/24 05:21 BUN 60 mg/dL (8-23) H 01/30/24 05:21 Creatinine 2.9 mg/dL (0.7-1.2) H 01/30/24 05:21 GFR Calculation Not Reportable 01/30/24 05:21 Glucose 105 mg/dL (65-115) 01/30/24 05:21 Estimat Average Glucose 111 01/29/24 14:06 Hemoglobin A1c 5.5 % (4.0-6.0) 01/29/24 14:06 Calculated Osmolality 311 mOsm/kg (285-295) H 01/30/24 05:21 Lactic Acid 1.0 mmol/L (0.5-2.2) 01/29/24 16:20 Calcium 8.8 mg/dL (8.5-10.5) 01/30/24 05:21 Phosphorus 3.8 mg/dL (2.5-4.5) 01/30/24 05:21 Magnesium 2.6 mg/dL (1.7-2.3) H 01/30/24 05:21 Total Bilirubin 0.4 mg/dL (0.15-1.2) 01/30/24 05:21 AST 18 U/L (0-40) 01/30/24 05:21 ALT 24 U/L (0-41) 01/30/24 05:21 Alkaline Phosphatase 77 U/L (40-130) 01/30/24 05:21 Troponin T Baseline 453 ng/L (0-15) H* 01/29/24 14:06 Troponin T 120 Minute 406.6 ng/L (0-15) H 01/29/24 16:20 Delta Troponin T -46.4 ABS# (0-10) L 01/29/24 16:20 Troponin T Hi Sens 6Hr 392.7 ng/L (0-15) H 01/29/24 20:00 Troponin T Hi Sens 6Hr Delta -60.3 ng/L (0-12) L 01/29/24 20:00 C-Reactive Protein 33.6 mg/L (0.0-4.9) H 01/29/24 14:06 NT-Pro-B Natriuret Pep 42701 pg/mL (0-450) H 01/30/24 05:21 Total Protein 6.7 g/dL (6.6-8.7) 01/30/24 05:21 Albumin 3.6 g/dL (3.5-5.2) 01/30/24 05:21 Globulin 3.1 g/dL (1.3-4.6) 01/30/24 05:21 Triglycerides 96 mg/dL (0-150) 01/29/24 14:06 Cholesterol 114 mg/dL (0-200) 01/29/24 14:06 LDL Cholesterol, Calc 52 mg/dL (50-129) 01/29/24 14:06 HDL Cholesterol 43 mg/dL (60-100) L 01/29/24 14:06 LDL/HDL Ratio 1.21 RATIO (0.00-3.22) 01/29/24 14:06 Cholesterol/HDL Ratio 2.65 mg/dL (1.0-5.00) 01/29/24 14:06 Lipase 59 U/L (13-60) 01/29/24 14:06 Procalcitonin 0.10 ng/mL (0-0.5) 01/29/24 14:06 TSH 8.52 uIU/mL (0.27-4.20) H 01/29/24 14:06 Free T4 1.33 ng/dL (0.82-1.77) 01/30/24 05:21 Free T3 1.8 PG/ML (2.0-4.4) L 01/30/24 05:21 Urine Color Yellow (Yellow) 01/29/24 18:00 Urine Appearance Clear (CLEAR) 01/29/24 18:00 Urine pH 5 (5-7) 01/29/24 18:00 Ur Specific Belva 1.015 (1.005-1.030) 01/29/24 18:00 Urine Protein Trace (Negative) 01/29/24 18:00 Urine Glucose (UA) Norm (Normal) 01/29/24 18:00 Urine Ketones Negative (Negative) 01/29/24 18:00 Urine Blood Neg (Negative) 01/29/24 18:00 Urine Nitrate Negative (Negative) 01/29/24 18:00 Urine Bilirubin Neg (Negative) 01/29/24 18:00 Urine Urobilinogen Neg mg/dL (Negative) 01/29/24 18:00 Ur Leukocyte Esterase Negative (Negative) 01/29/24 18:00 Urine RBC None /hpf (0-2) 01/29/24 18:00 Urine WBC None /hpf (0-5) 01/29/24 18:00 Ur Squamous Epith Cells None /hpf (0-5) 01/29/24 18:00 Amorphous Sediment Trace /hpf 01/29/24 18:00 Urine Bacteria None /hpf (NONE) 01/29/24 18:00 Adenovirus (PCR) Not detected (NOT DETECT) 01/29/24 18:00 C. pneumoniae DNA (PCR) Not detected (NOT DETECT) 01/29/24 18:00 Coronavirus 229E (PCR) Not detected (NOT DETECT) 01/29/24 18:00 Human Metapneumovir PCR Not detected (NOT DETECT) 01/29/24 18:00 Influenza A (H1) PCR Not detected (NOT DETECT) 01/29/24 18:00 Influ A (H1/09) PCR Not detected (NOT DETECT) 01/29/24 18:00 Influenza A (H3) PCR Not detected (NOT DETECT) 01/29/24 18:00 Influenza Type A (PCR) Not detected (NOT DETECT) 01/29/24 18:00 Influenza Type B (PCR) Not detected (NOT DETECT) 01/29/24 18:00 M. pneumoniae (PCR) Not detected (NOT DETECT) 01/29/24 18:00 Parainfluenza 1 (PCR) Not detected (NOT DETECT) 01/29/24 18:00 Parainfluenza 2 (PCR) Not detected (NOT DETECT) 01/29/24 18:00 Parainfluenza 3 (PCR) Not detected (NOT DETECT) 01/29/24 18:00 Parainfluenza 4 (PCR) Not detected (NOT DETECT) 01/29/24 18:00 RSV Type A (PCR) Not detected (NOT DETECT) 01/29/24 18:00 RSV Type B (PCR) Not detected (NOT DETECT) 01/29/24 18:00 Entero/Rhino (PCR) Not detected (NOT DETECT) 01/29/24 18:00 SARS-CoV-2 (PCR) Not detected (NOT DETECT) 01/29/24 18:00 Radiology Impressions Chest X-Ray 01/29/24 13:43 IMPRESSION: Cardiomegaly and mild pulmonary vascular congestion. No focal lung consolidation. Chest CT 01/29/24 15:45 IMPRESSION: Primarily right-sided patchy airspace opacities likely infectious/inflammatory. Small bilateral pleural effusions. 3.5 cm pancreatic head cystic lesion. Nonemergent pancreatic MRI recommended for further characterization. Cholelithiasis. Recent Clincial Data Last Vital Signs Temp 97.6 F 01/30/24 13:45 Pulse 51 L 01/30/24 13:45 Resp 24 H 01/30/24 13:45 BP 101/57 01/30/24 13:45 Pulse Ox 98 01/30/24 13:45 O2 Del Method Nasal Cannula 01/30/24 00:17 O2 Flow Rate 1 01/30/24 00:17 Vital Signs Temp Pulse Resp BP Pulse Ox 01/30/24 13:45 97.6 F 51 L 24 H 101/57 98 01/30/24 13:30 47 L 23 H 115/58 97 01/30/24 13:15 49 L 24 H 102/69 97 01/30/24 13:00 49 L 24 H 96/55 97 01/30/24 12:45 53 L 25 H 100/51 96 01/30/24 12:30 56 L 18 143/79 95 01/30/24 12:15 59 L 22 H 146/85 96 01/30/24 12:00 51 L 18 150/75 95 01/30/24 11:45 55 L 18 141/77 96 01/30/24 11:30 52 L 17 148/77 97 01/30/24 11:15 52 L 17 143/88 96 01/30/24 11:00 57 L 23 H 146/88 96 01/30/24 10:45 52 L 17 138/77 97 01/30/24 10:30 51 L 17 148/97 96 01/30/24 10:15 53 L 18 145/84 96 01/30/24 10:00 57 L 22 H 134/84 94 01/30/24 09:45 60 21 H 153/81 94 01/30/24 09:30 59 L 24 H 145/80 95 01/30/24 09:15 64 24 H 138/72 94 01/30/24 09:00 56 L 19 H 128/64 94 01/30/24 08:45 97.9 F 58 L 22 H 129/69 94 01/30/24 08:30 57 L 20 H 120/71 95 01/30/24 08:15 60 21 H 135/56 94 01/30/24 08:00 66 20 H 120/65 96 01/30/24 07:45 60 21 H 137/65 95 01/30/24 07:30 56 L 18 145/92 94 01/30/24 07:15 58 L 20 H 161/82 96 01/30/24 07:00 57 L 19 H 155/78 94 01/30/24 06:00 60 01/30/24 04:30 68 17 162/83 95 01/30/24 04:25 61 19 H 162/83 94 01/30/24 04:20 61 21 H 162/83 95 01/30/24 04:15 58 L 20 H 148/82 96 01/30/24 04:10 56 L 19 H 148/82 95 01/30/24 04:05 57 L 21 H 148/82 95 01/30/24 04:00 55 L 19 H 147/77 94 01/30/24 03:55 57 L 21 H 147/77 93 01/30/24 03:50 57 L 19 H 147/77 94 01/30/24 03:45 56 L 20 H 134/74 91 01/30/24 03:40 60 21 H 134/74 91 01/30/24 03:35 69 22 H 134/74 93 01/30/24 03:30 56 L 20 H 138/73 92 01/30/24 03:25 64 21 H 138/73 92 01/30/24 03:20 60 23 H 138/73 91 01/30/24 03:15 62 21 H 140/85 89 L 01/30/24 03:10 63 20 H 140/85 90 01/30/24 03:05 66 23 H 140/85 90 01/30/24 03:00 65 22 H 137/82 90 01/30/24 02:55 61 23 H 137/82 93 01/30/24 02:50 64 22 H 137/82 90 01/30/24 02:45 64 22 H 91 01/30/24 02:40 67 22 H 93 01/30/24 02:35 67 27 H 91 01/30/24 02:30 61 23 H 142/76 93 Intake & Output/Weight 01/28/24 01/29/24 01/30/24 01/31/24 06:59 06:59 06:59 06:59 Intake Total 509.583 / 509.583 174.517 / 174.517 Output Total 850 / 850 Balance -340.417 / -340.417 174.517 / 174.517 Weight 86.591 kg Vitals Last Vital Signs Temp 97.6 F 01/30/24 13:45 Pulse 51 L 01/30/24 13:45 Resp 24 H 01/30/24 13:45 BP 101/57 01/30/24 13:45 Pulse Ox 98 01/30/24 13:45 O2 Del Method Nasal Cannula 01/30/24 00:17 O2 Flow Rate 1 01/30/24 00:17 TS Medications Medications Acetaminophen (Acetaminophen 325 Mg Tablet) 650 mg PO Q6H PRN PRN Reason: Mild/Mod Pain Or Temp >/= 101 Last Admin: 01/30/24 13:07 Dose: 650 mg Aspirin (Aspirin 81 Mg Ec Tablet) 81 mg PO DAILY [facility] Last Admin: 01/30/24 09:05 Dose: 81 mg Atorvastatin Calcium (Atorvastatin 40 Mg Tablet) 40 mg PO DAILY [facility] Last Admin: 01/30/24 09:05 Dose: 40 mg Clopidogrel Bisulfate (Clopidogrel 75 Mg Tablet) 75 mg PO DAILY [facility] Last Admin: 01/30/24 09:05 Dose: 75 mg Furosemide (Furosemide 10 Mg/Ml Sdv 4ml) 40 mg IVP Q12H [facility] Last Admin: 01/29/24 21:56 Dose: 40 mg Heparin Sodium (Porcine) (Heparin 5,000 Unit/Ml Inj 1 Ml) 0 unit IV PRN PRN; Protocol PRN Reason: Heparin weight-base protocol Hydralazine HCl (Hydralazine 25 Mg Tablet) 25 mg PO TID [facility] Last Admin: 01/30/24 13:08 Dose: Not Given Heparin Sodium/Sodium Chloride (Heparin Drip) 25,000 unit in 500 mls @ 0 mls/hr IV .Q0M [facility]; Protocol Last Titration: 01/30/24 06:15 Dose: 11.31 unit/kg/hr, 20 mls/hr Ceftriaxone Sodium 1,000 mg/ (Sodium Chloride) 50 mls @ 100 mls/hr IV Q24H [facility]; Protocol Last Infusion: 01/29/24 23:30 Dose: Infused Azithromycin 500 mg/ Sodium (Chloride) 250 mls @ 250 mls/hr IV Q24H [facility]; Protocol Last Infusion: 01/29/24 23:30 Dose: Infused Isosorbide Dinitrate (Isosorbide Dinitrate 20 Mg Tablet) 20 mg PO TID [facility] Last Admin: 01/30/24 09:05 Dose: 20 mg Levothyroxine Sodium (Levothyroxine 25 Mcg Tablet) 25 mcg PO QAM [facility] Last Admin: 01/30/24 13:07 Dose: 25 mcg Morphine Sulfate (Morphine 4 Mg/Ml Sdv 1 Ml) 2 mg IVP Q4H PRN PRN Reason: SEVERE PAIN Ondansetron HCl (Ondansetron 2 Mg/Ml Sdv 2 Ml) 4 mg IVP Q8H PRN PRN Reason: vomiting, or N/V if npo Pantoprazole Sodium (Pantoprazole 40 Mg Sdv) 40 mg IVP Q24H [facility] Last Admin: 01/29/24 19:12 Dose: 40 mg Discontinued Medications Aspirin (Aspirin 81 Mg Chew Tablet) 324 mg PO NOW ONE Stop: 01/29/24 15:09 Last Admin: 01/29/24 15:16 Dose: 324 mg Furosemide (Furosemide 10 Mg/Ml Sdv 10ml) 60 mg IVP ONCE ONE Stop: 01/29/24 15:04 Last Admin: 01/29/24 15:16 Dose: 60 mg Dopamine HCl/Dextrose (Intropin Drip) 400 mg in 250 mls @ 16.312 mls/hr IV CONT [facility]; Protocol Last Titration: 01/30/24 12:00 Dose: 0 mcg/kg/min, 0 mls/hr Allergies No Known Allergies Allergy (Verified 01/29/24 13:49) Home Medications amiodarone 200 mg tablet 200 mg PO BID 01/29/24 [History Confirmed 01/29/24] apixaban 2.5 mg tablet (Eliquis) 2.5 mg PO BID 01/29/24 [History Confirmed 01/29/24] aspirin 81 mg tablet,delayed release 81 mg PO DAILY 01/29/24 [History Confirmed 01/29/24] clopidogrel 75 mg tablet (Plavix) 75 mg PO DAILY 01/29/24 [History Confirmed 0 01/29/24] hydralazine 25 mg tablet 25 mg PO TID 01/29/24 [History Confirmed 01/29/24] isosorbide dinitrate 20 mg tablet 20 mg PO TID 01/29/24 [History Confirmed 01/29/24] metoprolol succinate 200 mg tablet,extended release 24 hr 200 mg PO DAILY 01/29/24 [History Confirmed 01/29/24] rosuvastatin 10 mg tablet (Crestor) 10 mg PO DAILY 01/29/24 [History Confirmed 01/29/24] levothyroxine 25 mcg tablet 25 mcg PO DAILY 01/30/24 [History Confirmed 01/30/24] Discharge Plan Discharge Patient Disposition: Home Condition: Stable Prescriptions: No Action Aspir-81 81 mg Tablet,Delayed Release (Dr/Ec) 81 mg PO DAILY amiodarone 200 mg Tablet 200 mg PO BID metoprolol succinate 200 mg Tablet Extended Release 24 Hr 200 mg PO DAILY hydralazine 25 mg Tablet 25 mg PO TID Plavix 75 mg Tablet 75 mg PO DAILY isosorbide dinitrate 20 mg Tablet 20 mg PO TID Rx Instructions: allow nitrate-free interval of 12-14 hrs per 24-hr period (RX NO PICKED UP OF 01/29/24) Crestor 10 mg Tablet 10 mg PO DAILY Eliquis 2.5 mg Tablet 2.5 mg PO BID Rx Instructions: (RX NOT PICKED UP OF 01/29/24) levothyroxine 25 mcg Tablet 25 mcg PO DAILY Transfer Attestations Time Spent in Transfer Care: greater than 30 min Quality Metrics Clinical Quality Measures [ No reported AMI, CVA or VTE this stay] Coding Level of Care Code 10430 Total time (in minutes) for Discharge: 45 Diagnoses NSTEMI (non-ST elevated myocardial infarction) I21.4 CHF (congestive heart failure) I50.9 Systolic CHF, acute I50.21 Bradycardia R00.1 Acute kidney injury N17.9
== END 2024-01-30 17:45 | disposition short-term general hospital (02) | DRG 280 ==
LOC: ER 15:09 → ICU 20:26
PROVIDERS: Admitting Provider Family Medicine; Emergency Provider Emergency Medicine; Visit Provider Family Medicine
DX: I11.0 Hypertensive heart disease with heart failure (principal); I50.23 Acute on chronic systolic (congestive) heart failure; I21.4 Non-ST elevation (NSTEMI) myocardial infarction; J18.9 Pneumonia, unspecified organism; N17.9 Acute kidney failure, unspecified; I48.20 Chronic atrial fibrillation, unspecified; I25.10 Atherosclerotic heart disease of native coronary artery without angina pectoris; Z95.5 Presence of coronary angioplasty implant and graft; Z79.01 Long term (current) use of anticoagulants; E78.5 Hyperlipidemia, unspecified; R00.1 Bradycardia, unspecified; Z79.82 Long term (current) use of aspirin; Z79.02 Long term (current) use of antithrombotics/antiplatelets; I25.2 Old myocardial infarction
CPT/HCPCS: 36415; 51702; 71045; 71250; 80053; 80061; 81001; 83036; 83605; 83690; 83735; 83880; 84100; 84145; 84439; 84443; 84481; 84484; 85025; 85610; 85730; 86140; 87040; 87486; 87581; 87633; 93005; 93306; 94664; 96365; 96367; 96375; 99285; C9113; J0456; J0696; J1265; J1644; J1940; J7050